=== PATIENT | male | born 1995 | race Caucasian/White ===

== ENCOUNTER → 2020-05-31 | Outpatient (CLI) | payer BC | LOC: WOUNDCARE 11:37 | PROVIDERS: ATTEND Surgery | DX: L03.113 Cellulitis of right upper limb (principal); L98.492 Non-pressure chronic ulcer of skin of other sites with fat layer exposed; T65.222A Toxic effect of tobacco cigarettes, intentional self-harm, initial encounter; F17.218 Nicotine dependence, cigarettes, with other nicotine-induced disorders; F17.210 Nicotine dependence, cigarettes, uncomplicated | CPT/HCPCS: 11042; A6260; G0463 ==

== ENCOUNTER 2020-12-24 11:36 | Emergency (ER) | payer BC, OTHER ==
[~2020-12-24] VITALS: Ht 172.7 cm; Wt 71.7 kg
[2020-12-24 11:42] VITALS: BP 127/81
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
== END 2020-12-24 12:38 ==
LOC: EDUNIT# 11:36 → ER FS 11:38
DX: S40.012A Contusion of left shoulder, initial encounter (principal); S00.81XA Abrasion of other part of head, initial encounter; X58.XXXA Exposure to other specified factors, initial encounter
CPT/HCPCS: 70140; 73030